=== PATIENT | female | born 1985 | race African-American/Black ===

== ENCOUNTER 2017-03-21 00:46 | Emergency (ER) | payer MEDICAID ==
[~2017-03-21] VITALS: Ht 165.1 cm; Wt 68.0 kg
[~2017-03-21 00:46] MED LIST: KEPP500 PO
[2017-03-21 04:10] LABS: CLARITY URINE CLOUDY (CLEAR); COLOR URINE YELLOW (YELLOW); GLUCOSE URINE NEGATIVE (NEGATIVE); KETONES URINE NEGATIVE (NEGATIVE); LEUKOCYTE ESTERASE URINE 1+ (NEGATIVE); NITRITE URINE NEGATIVE (NEGATIVE); OCCULT BLOOD URINE 2+ (NEGATIVE); PH URINE 6.5 (4.5-8.0); PROTEIN URINE NEGATIVE (NEGATIVE); SPECIFIC GRAVITY URINE 1.011 (1.005-1.030); UROBILINOGEN URINE 0.2 E.U./dL (0.2-1.0)
[2017-03-21 04:47] LABS: BACTERIA URINE 2+; RBC URINE 0-2 /hpf (0-2); SQUAMOUS EPITHELIAL CELL URINE 2+ /lpf (RARE/1+); WBC URINE 0-2 /hpf (0-2)
[2017-03-21] MEDS ORDERED: IBUPROFEN 600MG TABLET PO ONE (05:30)
[2017-03-21 05:40] VITALS: BP 133/79
== END 2017-03-21 06:00 | disposition home or self-care (01) ==
LOC: ER 00:47
DX: N39.0 Urinary tract infection, site not specified (principal); N76.0 Acute vaginitis; J45.909 Unspecified asthma, uncomplicated; F17.210 Nicotine dependence, cigarettes, uncomplicated; Z88.2 Allergy status to sulfonamides; Z79.899 Other long term (current) drug therapy
CPT/HCPCS: 81001; 81025; 82962; 99283